=== PATIENT | female | born 1990 | race Caucasian/White ===

== ENCOUNTER 2016-04-01 08:43 | Day surgery (SDC) | payer OTHER ==
[~2016-04-01 08:43] MED LIST: CEFAZOLIN 1 GM/D5W RTU 1 GM/50 ML RTUPB IV PRN; RINGERS SOLUTION,LACTATED 1,000 ML IV PRN
[2016-04-01] MEDS ORDERED: MIDAZOLAM 2 MG/2 ML INJ ONE (09:30)
[2016-04-01] MEDS ORDERED: PROPOFOL INJ 200 MG/20 ML VIAL IV ONE (09:31)
[2016-04-01] MEDS ORDERED: BUPIVACAINE HCL 0.5 % INJ/PF 30 ML SDV ONE (09:34)
[2016-04-01] MEDS ORDERED: LIDOCAINE 2% INJ (20 MG/ML) 20 ML MDV ONE (09:34)
[2016-04-01] MEDS ORDERED: POVIDONE-IODINE 10% OINTMENT 28.4 GM ONE (10:11)
--- NOTE | 2016-04-01 11:38 | [facility] OPERATIVE REPORT E ---
[facility] Operative Report NAME: JV KNOWLES AGE: 25Y DATE OF SURGERY: 04/01/2016 ROOM: PREOPERATIVE DIAGNOSIS: Onychoincurvatus hallux bilateral. POSTOPERATIVE DIAGNOSIS: Onychoincurvatus hallux bilateral. PROCEDURES PERFORMED: 1. Partial nail avulsion, hallux bilateral. 2. Partial matrixectomy, medial and lateral corners of matrix, hallux bilateral. SURGEON: SYLVIA SANCHEZ D.P.M. INTRAOPERATIVE FINDINGS: Indicated very deeply incurvated nail borders creating tremendous pressure and friction pain into the medial and lateral nail grooves, especially with closed shoes. Intraoperative findings were confirmed clinically. PROCEDURE: With the patient laying in a dorsal recumbent position, both feet were prepped and draped in the usual standard sterile orthopedic manner after the local anesthesia was administered, which was a digital block utilizing a 50/50 mixture of 2% Xylocaine and 0.5% Marcaine. After the anesthetic effect was accomplished, attention was directed to the right hallux first. At this point, the medial and lateral nail borders were removed. The nail grooves were cleaned from any debris. The digital tourniquet was placed at the base of the right hallux to control hemostasis. Next, 2 oblique incisions 1 cm in length were placed at the medial and lateral corner of the eponychium and at the junction of the medial and proximal corners of the nail grooves. The incisions were angulated about 45 degrees to the long axis of distal phalanx. The skin flaps were created. The coroners of the matrix were excised at this point. After that, the denuded bone was curetted and finally electrodesiccation was performed to assure total destruction of any remnants of the matrix which may cause regeneration of nail tissue. The surgical layers were irrigated. The spaces were packed with Gelfoam. The skin flaps were repositioned and anchored down with 4-0 Vicryl. A Betadine compression dressing was applied around the right hallux. The digital tourniquet was removed. Circulation returned to normal immediately as the normal digital color and temperature became apparent. Next, attention was directed to the left hallux and exactly the same procedures were performed at this point. The patient tolerated procedures well and left the operating room with stable vital signs and in good condition. There are no permanent disabilities anticipated at this time. DICTATING PHYSICIAN: SYLVIA SANCHEZ D.P.M. [id number] PHY#: [id number] ID: [id number] JOB#: [id number] ACCT: [id number] cc:SYLVIA SANCHEZ D.P.M. >
== END 2016-04-01 11:48 | disposition home or self-care (01) ==
LOC: SC 08:43
PROVIDERS: ATTEND Podiatrist Foot & Ankle Surgery
PROC: 0HTRXZZ Resection of Toe Nail, External Approach (ICD-10-PCS; principal; 2016-04-01 09:45)
DX: L60.3 Nail dystrophy (principal); Z79.899 Other long term (current) drug therapy; Z87.891 Personal history of nicotine dependence
CPT/HCPCS: 88304 ×2; 11750 ×2; J2250; J3490 ×2; J0690; J2704; 400

== ENCOUNTER 2017-02-12 20:06 | Emergency (ER) | payer OTHER ==
[2017-02-12 20:15] VITALS: BP 146/85
[2017-02-12] MEDS ORDERED: CEPHALEXIN 500 MG CAPSULE PO ONE (20:49)
--- NOTE | 2017-02-12 20:54 | ER Document Report ---
ED Fever - General Chief Complaint: Fever Stated Complaint: FEVER Time Seen by Provider: 02/12/17 20:49 Notes: 26 years old female who had a tonsillectomy done 2 days ago presents with fever and difficulty in swallowing. She measured a temperature of 103. Denies any other constitutional symptoms denies any cough headache dizziness neck pain neck stiffness. TRAVEL OUTSIDE OF THE [place] IN LAST 30 DAYS: No - Related Data Allergies/Adverse Reactions: No Known Allergies Allergy (Verified 02/12/17 20:11) Home Medications: Current Home Medications Hydrocodone/Acetaminophen [[place] 10-325 Tablet] 1 each PO Q4H PRN 02/12/17 [ History] Ibuprofen [Motrin 600 mg Tablet] 600 mg PO Q8HP PRN 02/12/17 [History] Past Medical History - Social History Smoking Status: Former Smoker Chew tobacco use (# tins/day): No Frequency of alcohol use: None Drug Abuse: None Family History: Reviewed & Not Pertinent Patient has suicidal ideation: No Patient has homicidal ideation: No - Past Medical History Cardiac Medical History: Denies: Hx Heart Attack, Hx Hypertension, Hx Pulmonary Embolism, Hx Heart Murmur Pulmonary Medical History: Denies: Hx Asthma, Hx Sleep Apnea, Hx Tuberculosis Neurological Medical History: Reports: Hx Migraine. Denies: Hx Cerebrovascular Accident, Hx Seizures Endocrine Medical History: Denies: Hx Hyperthyroidism, Hx Hypothyroidism Renal/ Medical History: Denies: Hx Kidney Stones, Hx Ovarian Cysts, Hx Peritoneal Dialysis, Hx Pelvic Inflammatory Disease Malignancy Medical History: Denies: Hx Breast Cancer, Hx Cervical Cancer, Hx Ovarian Cancer GI Medical History: Denies: Hx Gastroesophageal Reflux Disease, Hx Hepatitis, Hx Hiatal Hernia, Hx Ulcer Musculoskeltal Medical History: Denies Hx Fibromyalgia Psychiatric Medical History: Reports: Hx Anxiety, Hx Depression - pp and anxiety meds in past Denies: Hx Bipolar Disorder, Hx Post Traumatic Stress Disorder, Hx Schizophrenia Traumatic Medical History: Denies: Hx Fractures Infectious Medical History: Denies: Hx Hepatitis, Hx HIV Past Surgical History: Reports: Hx Section - x2, Hx Cholecystectomy - 2011. Denies: Hx Hysterectomy, Hx Mastectomy, Hx Open Heart Surgery, Hx Pacemaker - Immunizations Hx Diphtheria, Pertussis, Tetanus Vaccination: No - received 2012 Review of Systems - Review of Systems Notes: REVIEW OF SYSTEMS: CONSTITUTIONAL : chills, or sweats. Denies recent illness. EENT: Denies eye, ear, throat, or mouth pain or symptoms. Denies nasal or sinus congestion or discharge. Denies throat, tongue, or mouth swelling or difficulty swallowing. CARDIOVASCULAR: Denies chest pain. Denies palpitations or racing or irregular heart beat. Denies ankle edema. RESPIRATORY: Denies cough, cold, or chest congestion. Denies shortness of breath, difficulty breathing, or wheezing. GASTROINTESTINAL: Denies abdominal pain or distention. Denies nausea, vomiting , or diarrhea. Denies blood in vomitus, stools, or per rectum. Denies black, tarry stools. Denies constipation. GENITOURINARY: Denies difficulty urinating, painful urination, burning, frequency, blood in urine, or discharge. FEMALE GENITOURINARY: Denies vaginal bleeding, heavy or abnormal periods, irregular periods. Denies vaginal discharge or odor. MUSCULOSKELETAL: Denies back or neck pain or stiffness. Denies joint pain or swelling. SKIN: Denies rash, lesions or sores. HEMATOLOGIC : Denies easy bruising or bleeding. LYMPHATIC: Denies swollen, enlarged glands. NEUROLOGICAL: Denies confusion or altered mental status. Denies passing out or loss of consciousness. Denies dizziness or lightheadedness. Denies headache. Denies weakness or paralysis or loss of use of either side. Denies problems with gait or speech. Denies sensory loss, numbness, or tingling. Denies seizures. PSYCHIATRIC: Denies anxiety or stress. Denies depression, suicidal ideation, or homicidal ideation. ALL OTHER SYSTEMS REVIEWED AND NEGATIVE. PHYSICAL EXAMINATION: GENERAL: Well-appearing, well-nourished and in no acute distress. HEAD: Atraumatic, normocephalic. EYES: Pupils equal round and reactive to light, extraocular movements intact, conjunctiva are normal. ENT: Nares patent, tonsillar fossa is empty blackish jenkins discoloration of the mucous membrane in the folds are noted due to cauterization. No surrounding erythema or exudates noted.. Moist mucous membranes. NECK: Normal range of motion, supple without lymphadenopathy LUNGS: Breath sounds clear to auscultation bilaterally and equal. No wheezes rales or rhonchi. HEART: Regular rate and rhythm without murmurs ABDOMEN: Soft, nontender, nondistended abdomen. No guarding, no rebound. No masses appreciated. Female : deferred Musculoskeletal: Normal range of motion, no pitting or edema. No cyanosis. NEUROLOGICAL: Cranial nerves grossly intact. Normal speech, normal gait. Normal sensory, motor exams PSYCH: Normal mood, normal affect. SKIN: Warm, Dry, normal turgor, no rashes or lesions noted. Dictation was performed using [employer] voice recognition software Physical Exam - Vital signs Vitals: Temp Pulse Resp BP Pulse Ox 99.6 F 110 H 20 146/85 H 95 02/12/17 20:14 02/12/17 20:14 02/12/17 20:14 02/12/17 20:14 02/12/17 20:14 Course - Re-evaluation Re-evalutation: 02/12/17 20:51 Patient was explained to put ice on and off to both sides of the neck as well as try to avoid taking Vicodin which make her nauseous and she will not be able to eat. And given Keflex antibiotic. - Vital Signs Vital signs: Temp Pulse Resp BP Pulse Ox 99.6 F 110 H 20 146/85 H 95 02/12/17 20:14 02/12/17 20:14 02/12/17 20:14 02/12/17 20:14 02/12/17 20:14 Discharge - Discharge Clinical Impression: Post-tonsillectomy pain, Fever Condition: Fair Disposition: HOME, SELF-CARE Instructions: Acetaminophen, Fever (OM), Ibuprofen (General) ([facility]) Prescriptions: Cephalexin Monohydrate [Keflex 500 mg Capsule] 500 mg PO Q6H 7 Days capsule
[2017-02-12] MEDS ORDERED: IBUPROFEN 800 MG TABLET PO ONE (20:55)
== END 2017-02-12 21:05 | disposition home or self-care (01) ==
LOC: ER 20:06
DX: G89.18 Other acute postprocedural pain (principal); R50.9 Fever, unspecified; R13.10 Dysphagia, unspecified; Z87.891 Personal history of nicotine dependence; Z90.89 Acquired absence of other organs
CPT/HCPCS: 99283

== ENCOUNTER → 2018-02-07 | Outpatient (CLI) | payer SELFPAY ==
--- NOTE | 2018-02-07 18:06 | RADIOLOGY REPORT (SQ) ---
EXAM DESCRIPTION: CHEST 2 VIEWS COMPLETED DATE/TIME: 02/07/2018 5:55 pm REASON FOR STUDY: R05 COUGH COMPARISON: None. EXAM PARAMETERS: NUMBER OF VIEWS: two views TECHNIQUE: Digital Frontal and Lateral radiographic views of the chest acquired. RADIATION DOSE: NA LIMITATIONS: none FINDINGS: LUNGS AND PLEURA: No opacities, masses or pneumothorax. No pleural effusion. MEDIASTINUM AND HILAR STRUCTURES: No masses or contour abnormalities. HEART AND VASCULAR STRUCTURES: Heart normal size. No evidence for failure. BONES: No acute findings. HARDWARE: None in the chest. OTHER: No other significant finding. IMPRESSION: NO ACUTE RADIOGRAPHIC FINDING IN THE CHEST. TECHNICAL DOCUMENTATION: JOB ID: [id number] [employer]- All Rights Reserved Reading location - IP/workstation name: [email or web address]
== END ==
LOC: RAD 17:32
PROVIDERS: ATTEND Nurse Practitioner Family
DX: R05 Cough (principal)
CPT/HCPCS: 71046

== ENCOUNTER → 2019-04-16 | Outpatient (CLI) | payer BC ==
[2019-04-16 13:33] LABS: BACTERIA (WET MOUNT) 4+ BACTERIA SEEN; EPITHELIALS (WET MOUNT) 4+ EPITHELIALS SEEN; RBCS (WET MOUNT) NO RBCS SEEN; T.VAGINALIS (WET MOUNT) NO TRICHOMONAS SEEN; WBCS (WET MOUNT) 1+ WBCS SEEN; YEAST (WET MOUNT) NO YEAST SEEN
[2019-04-16 15:06] LABS: CHLAM PCR NOT DETECTED (NOT DETECT)
== END ==
LOC: LAB 13:18
PROVIDERS: ATTEND Nurse Practitioner Family
DX: N89.8 Other specified noninflammatory disorders of vagina (principal); R30.0 Dysuria; R10.32 Left lower quadrant pain
CPT/HCPCS: 81025; 87086; 87088; 87186; 87210; 87491; 87591